=== PATIENT | male | born 1955 | race African-American/Black ===

== ENCOUNTER 2022-11-19 18:32 | Observation (INO) | payer OTHER ==
[2022-11-19 19:29] LABS: BASO % 0.5 % (0-2.0); EOS % 2.6 % (0-4.5); HEMATOCRIT 43.9 % (35.4-49); HEMOGLOBIN 15.1 GM/dL (11.7-16.9); LYMPH % 37.2 % (8-40); MCHC 34.3 g/dl (32.0-35.9); MEAN CELL VOLUME 87.3 fl (80-96); NEUT % 50.7 % (42.8-82.8); PLATELET COUNT 223 10^3/uL (134-434); RBC 5.03 M/mm3 (4.00-5.60); RDW 13.5 % (11.9-15.9); WHITE BLOOD COUNT 4.8 K/mm3 (4.0-10.0)
[2022-11-19 19:40] VITALS: BMI 21.9
[2022-11-19 19:40] LABS: ALBUMIN 3.5 g/dl (3.4-5.0); CALCIUM 9.3 mg/dL (8.5-10.1)
[2022-11-19 19:44] LABS: INR 1.06 (0.83-1.09); PROTHROMBIN TIME (PATIENT) 12.3 SEC (9.7-13.0)
[2022-11-19 19:45] LABS: BILIRUBIN,TOTAL 0.6 mg/dL (0.2-1); TOT PROT 7.7 g/dl (6.4-8.2)
[2022-11-19 19:46] LABS: ACTIVATED PTT 34.4 SECONDS (25.2-36.5)
[2022-11-19] MEDS ORDERED: ASPIRIN 81 MG CHEWABLE TABLETS PO ONE (20:54)
[2022-11-20 04:43] LABS: URINE APPEARANCE CLEAR; URINE BILIRUBIN NEGATIVE (NEGATIVE); URINE COLOR YELLOW; URINE GLUCOSE (UA) NEGATIVE (NEGATIVE); URINE KETONE NEGATIVE (NEGATIVE); URINE LEUK ESTERASE NEGATIVE (NEGATIVE); URINE NITRITE NEGATIVE (NEGATIVE); URINE PROTEIN NEGATIVE (NEGATIVE); URINE UROBILINOGEN 0.2 mg/dL (0.2-1.0)
[2022-11-20 04:54] LABS: COCAINE, UR NEGATIVE (NEGATIVE); OPIATES, URI NEGATIVE (NEGATIVE); URINE BENZODIAZEPINES NEGATIVE (NEGATIVE)
[2022-11-20 04:55] LABS: PHENCYCLIDINE,URINE NEGATIVE (NEGATIVE); URINE BARBITURATES NEGATIVE (NEGATIVE)
[2022-11-20 05:19] LABS: METHADONE, UR NEGATIVE (NEGATIVE); URINE AMPHETAMINES NEGATIVE (NEGATIVE)
[2022-11-20] MEDS ORDERED: amLODIPine BESYLATE 2.5 MG TABLET (FP) PO ONE ×2 (08:02→18:28)
[2022-11-20] MEDS ORDERED: ENOXAPARIN NA (PORCINE) 40 MG/0.4 ML DISP.SYRIN SQ ONE (09:16)
[2022-11-20] MEDS: ENOXAPARIN NA (PORCINE) 40 MG/0.4 ML DISP.SYRIN SQ SCH (09:29)
[2022-11-20] MEDS ORDERED: amLODIPine BESYLATE 5 MG TABLET (FP) ONE (16:35)
[2022-11-20] MEDS: amLODIPine BESYLATE 5 MG TABLET (FP) PO SCH (17:21)
[2022-11-20] MEDS ORDERED: LOSARTAN POTASSIUM 50 MG TABLET PO ONE (18:27)
[2022-11-20] MEDS ORDERED: LOSARTAN POTASSIUM 50 MG TABLET ONE (18:39)
[2022-11-20] MEDS ORDERED: amLODIPine BESYLATE 2.5 MG TABLET (FP) ONE (18:39)
[2022-11-20] MEDS: ATORVASTATIN CA 40 MG TABLET (FP) PO SCH ×2 (23:17→23:24)
[2022-11-21] MEDS ORDERED: LORazepam 2 MG/ML SDV VIAL IVPUSH ONE (01:01)
[2022-11-21 08:50] LABS: BASO % 0.4 % (0-2.0); EOS % 2.1 % (0-4.5); HEMATOCRIT 42.8 % (35.4-49); HEMOGLOBIN 15.1 GM/dL (11.7-16.9); LYMPH % 31.8 % (8-40); MCH 30.4 pg (25.7-33.7); MCHC 35.4 g/dl (32.0-35.9); MEAN CELL VOLUME 85.9 fl (80-96); MEAN PLT VOLUME 8.7 fl (7.5-11.1); MONO % 10.6 % (3.8-10.2); NEUT % 55.1 % (42.8-82.8); PLATELET COUNT 217 10^3/uL (134-434); RBC 4.98 M/mm3 (4.00-5.60); RDW 13.6 % (11.9-15.9); WHITE BLOOD COUNT 5.6 K/mm3 (4.0-10.0)
[2022-11-21 09:17] LABS: CALCIUM 9.2 mg/dL (8.5-10.1)
[2022-11-21 09:18] LABS: ALBUMIN 3.5 g/dl (3.4-5.0); BLOOD UREA NITROGEN 10.1 mg/dL (7-18)
[2022-11-21 09:22] LABS: BILIRUBIN,TOTAL 0.9 mg/dL (0.2-1); TOT PROT 7.6 g/dl (6.4-8.2)
[2022-11-21] MEDS: LOSARTAN POTASSIUM 50 MG TABLET PO SCH (09:35)
[2022-11-21] MEDS: ASPIRIN 81 MG CHEWABLE TABLETS PO SCH (09:35)
[2022-11-21] MEDS: ENOXAPARIN NA (PORCINE) 40 MG/0.4 ML DISP.SYRIN SQ SCH (09:35)
[2022-11-21] MEDS: DONEPEZIL HCL 5 MG TABLET (FP) PO SCH (09:35)
[2022-11-21] MEDS: amLODIPine BESYLATE 5 MG TABLET (FP) PO SCH (09:36)
[2022-11-21] MEDS: ATORVASTATIN CA 40 MG TABLET (FP) PO SCH (21:39)
[2022-11-22 07:34] LABS: HEMATOCRIT 41.7 % (35.4-49); HEMOGLOBIN 14.6 GM/dL (11.7-16.9); MCHC 34.9 g/dl (32.0-35.9); MEAN PLT VOLUME 8.8 fl (7.5-11.1); PLATELET COUNT 217 10^3/uL (134-434); RBC 4.85 M/mm3 (4.00-5.60); RDW 13.6 % (11.9-15.9); WHITE BLOOD COUNT 5.5 K/mm3 (4.0-10.0)
[2022-11-22 07:57] LABS: CALCIUM 8.9 mg/dL (8.5-10.1)
[2022-11-22 07:59] LABS: BLOOD UREA NITROGEN 19.5 mg/dL (7-18); MAGNESIUM 2.3 mg/dL (1.8-2.4)
[2022-11-22 08:01] LABS: PHOSPHOROUS 3.2 mg/dL (2.5-4.9)
[2022-11-22 08:02] LABS: CREATININE 0.9 mg/dL (0.55-1.3)
[2022-11-22] MEDS: amLODIPine BESYLATE 5 MG TABLET (FP) PO SCH (10:23)
[2022-11-22] MEDS: LOSARTAN POTASSIUM 50 MG TABLET PO SCH (10:23)
[2022-11-22] MEDS: DONEPEZIL HCL 5 MG TABLET (FP) PO SCH (10:23)
[2022-11-22] MEDS: ASPIRIN 81 MG CHEWABLE TABLETS PO SCH (10:23)
[2022-11-22] MEDS: ENOXAPARIN NA (PORCINE) 40 MG/0.4 ML DISP.SYRIN SQ SCH (10:23)
[2022-11-22] MEDS: ATORVASTATIN CA 80 MG TABLET (FP) PO SCH ×2 (22:43→23:08)
[2022-11-22] MEDS: QUEtiapine FUMARATE 25 MG TABLET PO SCH ×2 (22:43→23:08)
[2022-11-22] MEDS ORDERED: amLODIPine BESYLATE 5 MG TABLET (FP) PO ONE (23:59)
[2022-11-23 08:17] LABS: MCHC 34.2 g/dl (32.0-35.9); MEAN CELL VOLUME 87.8 fl (80-96); MEAN PLT VOLUME 8.6 fl (7.5-11.1); PLATELET COUNT 218 10^3/uL (134-434); RBC 4.67 M/mm3 (4.00-5.60); RDW 13.7 % (11.9-15.9); WHITE BLOOD COUNT 4.8 K/mm3 (4.0-10.0)
[2022-11-23 09:02] LABS: BLOOD UREA NITROGEN 13.7 mg/dL (7-18); CALCIUM 8.9 mg/dL (8.5-10.1)
[2022-11-23 09:03] LABS: MAGNESIUM 2.4 mg/dL (1.8-2.4)
[2022-11-23] MEDS: ENOXAPARIN NA (PORCINE) 40 MG/0.4 ML DISP.SYRIN SQ SCH (09:31)
[2022-11-23] MEDS: LOSARTAN POTASSIUM 50 MG TABLET PO SCH (09:32)
[2022-11-23] MEDS: amLODIPine BESYLATE 5 MG TABLET (FP) PO SCH (09:32)
[2022-11-23] MEDS: DONEPEZIL HCL 5 MG TABLET (FP) PO SCH (09:32)
[2022-11-23] MEDS: CLOPIDOGREL BISULFATE 75 MG TABLET (FP) PO SCH (09:32)
[2022-11-23] MEDS: QUEtiapine FUMARATE 25 MG TABLET PO SCH (21:42)
[2022-11-23] MEDS: ATORVASTATIN CA 80 MG TABLET (FP) PO SCH (21:42)
[2022-11-24] MEDS: LOSARTAN POTASSIUM 50 MG TABLET PO SCH (09:20)
[2022-11-24] MEDS: ENOXAPARIN NA (PORCINE) 40 MG/0.4 ML DISP.SYRIN SQ SCH (09:20)
[2022-11-24] MEDS: CLOPIDOGREL BISULFATE 75 MG TABLET (FP) PO SCH (09:20)
[2022-11-24] MEDS: amLODIPine BESYLATE 5 MG TABLET (FP) PO SCH (09:20)
[2022-11-24] MEDS: DONEPEZIL HCL 5 MG TABLET (FP) PO SCH (09:20)
[2022-11-24] MEDS: ATORVASTATIN CA 80 MG TABLET (FP) PO SCH (21:05)
[2022-11-24] MEDS: QUEtiapine FUMARATE 25 MG TABLET PO SCH (21:05)
[2022-11-25] MEDS: ENOXAPARIN NA (PORCINE) 40 MG/0.4 ML DISP.SYRIN SQ SCH (09:21)
[2022-11-25] MEDS: CLOPIDOGREL BISULFATE 75 MG TABLET (FP) PO SCH (09:21)
[2022-11-25] MEDS: amLODIPine BESYLATE 5 MG TABLET (FP) PO SCH (09:21)
[2022-11-25] MEDS: LOSARTAN POTASSIUM 50 MG TABLET PO SCH (09:21)
[2022-11-25] MEDS: DONEPEZIL HCL 5 MG TABLET (FP) PO SCH (09:21)
[2022-11-25] MEDS: QUEtiapine FUMARATE 25 MG TABLET PO SCH (21:41)
[2022-11-25] MEDS: ATORVASTATIN CA 80 MG TABLET (FP) PO SCH (21:41)
[2022-11-26] MEDS: ENOXAPARIN NA (PORCINE) 40 MG/0.4 ML DISP.SYRIN SQ SCH (09:04)
[2022-11-26] MEDS: CLOPIDOGREL BISULFATE 75 MG TABLET (FP) PO SCH (09:05)
[2022-11-26] MEDS: DONEPEZIL HCL 5 MG TABLET (FP) PO SCH (09:05)
[2022-11-26] MEDS: amLODIPine BESYLATE 5 MG TABLET (FP) PO SCH (09:06)
[2022-11-26] MEDS: LOSARTAN POTASSIUM 50 MG TABLET PO SCH (09:06)
[2022-11-26] MEDS: QUEtiapine FUMARATE 25 MG TABLET PO SCH (21:28)
[2022-11-26] MEDS: ATORVASTATIN CA 80 MG TABLET (FP) PO SCH (21:28)
[2022-11-27 07:59] VITALS: RESP 18
[2022-11-27] MEDS: CLOPIDOGREL BISULFATE 75 MG TABLET (FP) PO SCH (09:05)
[2022-11-27] MEDS: amLODIPine BESYLATE 5 MG TABLET (FP) PO SCH (09:05)
[2022-11-27] MEDS: LOSARTAN POTASSIUM 50 MG TABLET PO SCH (09:05)
[2022-11-27] MEDS: DONEPEZIL HCL 5 MG TABLET (FP) PO SCH (09:05)
[2022-11-27 13:35] VITALS: BP 138/77; PULSE 87; TEMP 98.3
== END 2022-11-27 16:20 ==
LOC: JER 18:32 → JERBED 21:59 → J4S 11-20 20:57
PROVIDERS: ADMIT Internal Medicine; ATTEND Internal Medicine
PROC: 3E023GC Introduction of Other Therapeutic Substance into Muscle, Percutaneous Approach (ICD-10-PCS; principal; 2022-11-19)
PROC: 3E033NZ Introduction of Analgesics, Hypnotics, Sedatives into Peripheral Vein, Percutaneous Approach (ICD-10-PCS; 2022-11-19)
DX: I63.9 Cerebral infarction, unspecified (principal); I69.920 Aphasia following unspecified cerebrovascular disease; I10 Essential (primary) hypertension; R26.2 Difficulty in walking, not elsewhere classified; G30.9 Alzheimer's disease, unspecified; F02.80 Dementia in other diseases classified elsewhere, unspecified severity, without behavioral disturbance, psychotic disturbance, mood disturbance, and anxiety
CPT/HCPCS: 0241U-QW; 36415; 70450-TC; 70551-TC; 71045-TC-FY; 73070-TC-LT-FY; 73521-TC-FY; 80048; 80053; 80061; 80307; 81003; 82962; 83036; 83735; 84100; 84484; 85025; 85027; 85610; 85730; 86850; 86900; 86901; 87086; 93005; 93010; 93306-TC; 93880-TC; 96365; 96372; 96375; 96376; 97116-GP; 97161-GP; 99285-25; C9803-CS; G0378; U0003; U0005

== ENCOUNTER 2023-09-02 17:34 | Inpatient (IN) | payer OTHER ==
[2023-09-02 18:49] LABS: BASO % 0.4 % (0-2.0); HEMATOCRIT 42.7 % (35.4-49); HEMOGLOBIN 14.5 GM/dL (11.7-16.9); LYMPH % 24.6 % (8-40); MCH 29.9 pg (25.7-33.7); MCHC 33.9 g/dl (32.0-35.9); MEAN CELL VOLUME 88.3 fl (80-96); MONO % 11.5 % (3.8-10.2); NEUT % 61.5 % (42.8-82.8); PLATELET COUNT 258 10^3/uL (134-434); RBC 4.84 M/mm3 (4.00-5.60); RDW 13.6 % (11.9-15.9); WHITE BLOOD COUNT 5.8 K/mm3 (4.0-10.0)
[2023-09-02 18:54] LABS: EPI CELLS 31 /uL (0-25.1); HYALINE CASTS 1 /uL (0-3.1); PH,URINE 6.5 (5.0-8.0); URINE APPEARANCE CLEAR; URINE BACTERIA 29 /uL (0-1359); URINE BILIRUBIN NEGATIVE (NEGATIVE); URINE COLOR YELLOW; URINE GLUCOSE (UA) NEGATIVE (NEGATIVE); URINE KETONE 1+ (NEGATIVE); URINE LEUK ESTERASE NEGATIVE (NEGATIVE); URINE NITRITE NEGATIVE (NEGATIVE); URINE PROTEIN TRACE (NEGATIVE); URINE RBC 59 /uL (0-23.9); URINE WBC 16 /uL (0-25.8)
[2023-09-02 18:57] LABS: INR 1.09 (0.83-1.09); PROTHROMBIN TIME (PATIENT) 12.6 SEC (9.7-13.0)
[2023-09-02 19:15] LABS: POTASSIUM 4.3 mmol/L (3.5-5.1)
[2023-09-02 19:19] LABS: CALCIUM 9.5 mg/dL (8.5-10.1)
[2023-09-02 19:20] LABS: ALBUMIN 3.4 g/dl (3.4-5.0); MAGNESIUM 2.4 mg/dL (1.8-2.4)
[2023-09-02 19:23] LABS: PHOSPHOROUS 3.3 mg/dL (2.5-4.9)
[2023-09-02 19:24] LABS: BILIRUBIN,TOTAL 1.2 mg/dL (0.2-1); BLOOD UREA NITROGEN 15.2 mg/dL (7-18); TOT PROT 7.4 g/dl (6.4-8.2)
[2023-09-03] MEDS: NICOTINE 7 MG/24 HOURS TOPICAL PATCH TD SCH (09:39)
[2023-09-03] MEDS: CLOPIDOGREL BISULFATE 75 MG TABLET (FP) PO SCH (09:39)
[2023-09-03] MEDS: LOSARTAN POTASSIUM 50 MG TABLET PO SCH (09:39)
[2023-09-03] MEDS ORDERED: amLODIPine BESYLATE 5 MG TABLET (FP) PO SCH (10:00)
[2023-09-03] MEDS ORDERED: amLODIPine BESYLATE 10 MG TABLET (FP) PO SCH (15:30)
[2023-09-03] MEDS ORDERED: amLODIPine BESYLATE 10 MG TABLET (FP) ONE (15:35)
[2023-09-03] MEDS ORDERED: DONEPEZIL HCL 5 MG TABLET (FP) PO SCH (22:00)
[2023-09-03] MEDS ORDERED: ATORVASTATIN CA 80 MG TABLET (FP) ONE (22:01)
[2023-09-03] MEDS: ATORVASTATIN CA 80 MG TABLET (FP) PO SCH (22:03)
[2023-09-04 06:58] LABS: BASO % 0.3 % (0-2.0); HEMATOCRIT 41.9 % (35.4-49); LYMPH % 30.1 % (8-40); MCH 29.9 pg (25.7-33.7); MCHC 33.4 g/dl (32.0-35.9); MEAN CELL VOLUME 89.6 fl (80-96); MEAN PLT VOLUME 7.7 fl (7.5-11.1); MONO % 11.4 % (3.8-10.2); NEUT % 55.2 % (42.8-82.8); PLATELET COUNT 259 10^3/uL (134-434); RBC 4.68 M/mm3 (4.00-5.60); RDW 13.6 % (11.9-15.9); WHITE BLOOD COUNT 6.5 K/mm3 (4.0-10.0)
[2023-09-04 07:23] LABS: POTASSIUM 3.8 mmol/L (3.5-5.1)
[2023-09-04 07:31] LABS: CREATININE 0.7 mg/dL (0.55-1.3)
[2023-09-04 07:32] LABS: ALBUMIN 3.4 g/dl (3.4-5.0); BILIRUBIN,TOTAL 1.2 mg/dL (0.2-1); BLOOD UREA NITROGEN 11.3 mg/dL (7-18); TOT PROT 7.1 g/dl (6.4-8.2)
[2023-09-04 07:50] LABS: CALCIUM 9.4 mg/dL (8.5-10.1)
[2023-09-04] MEDS ORDERED: ASPIRIN 81 MG CHEWABLE TABLETS PO SCH (10:00)
[2023-09-04] MEDS ORDERED: NICOTINE 7 MG/24 HOURS TOPICAL PATCH TD ONE (10:28)
[2023-09-04] MEDS ORDERED: LOSARTAN POTASSIUM 50 MG TABLET ONE (10:28)
[2023-09-04] MEDS ORDERED: CLOPIDOGREL BISULFATE 75 MG TABLET (FP) ONE (10:28)
[2023-09-04] MEDS ORDERED: ASPIRIN 81 MG CHEWABLE TABLETS ONE (10:28)
[2023-09-04] MEDS: LOSARTAN POTASSIUM 50 MG TABLET PO SCH (10:40)
[2023-09-04] MEDS: NICOTINE 7 MG/24 HOURS TOPICAL PATCH TD SCH (10:40)
[2023-09-04] MEDS: CLOPIDOGREL BISULFATE 75 MG TABLET (FP) PO SCH (10:41)
[2023-09-04] MEDS ORDERED: ATORVASTATIN CA 80 MG TABLET (FP) ONE (22:25)
[2023-09-04] MEDS: ATORVASTATIN CA 80 MG TABLET (FP) PO SCH (22:51)
[2023-09-05 00:35] VITALS: BMI 25.6
[2023-09-05 09:28] LABS: BASO % 0.2 % (0-2.0); HEMATOCRIT 40.1 % (35.4-49); HEMOGLOBIN 13.3 GM/dL (11.7-16.9); LYMPH % 32.7 % (8-40); MCH 29.7 pg (25.7-33.7); MCHC 33.2 g/dl (32.0-35.9); MEAN CELL VOLUME 89.5 fl (80-96); MEAN PLT VOLUME 7.3 fl (7.5-11.1); NEUT % 52.1 % (42.8-82.8); PLATELET COUNT 261 10^3/uL (134-434); RBC 4.48 M/mm3 (4.00-5.60); RDW 13.3 % (11.9-15.9); WHITE BLOOD COUNT 5.5 K/mm3 (4.0-10.0)
[2023-09-05 09:46] LABS: POTASSIUM 3.9 mmol/L (3.5-5.1)
[2023-09-05] MEDS: ENOXAPARIN NA (PORCINE) 40 MG/0.4 ML DISP.SYRIN SQ SCH ×2 (09:46→09:59)
[2023-09-05] MEDS: ASPIRIN 81 MG CHEWABLE TABLETS PO SCH (09:47)
[2023-09-05] MEDS: NICOTINE 7 MG/24 HOURS TOPICAL PATCH TD SCH ×2 (09:47→10:00)
[2023-09-05] MEDS: CLOPIDOGREL BISULFATE 75 MG TABLET (FP) PO SCH (09:47)
[2023-09-05] MEDS: LOSARTAN POTASSIUM 50 MG TABLET PO SCH (09:47)
[2023-09-05 10:00] LABS: ALBUMIN 3.1 g/dl (3.4-5.0); CALCIUM 9.2 mg/dL (8.5-10.1)
[2023-09-05 10:04] LABS: BILIRUBIN,TOTAL 0.9 mg/dL (0.2-1); TOT PROT 6.7 g/dl (6.4-8.2)
[2023-09-05 10:06] LABS: CREATININE 0.7 mg/dL (0.55-1.3)
[2023-09-05 14:25] VITALS: RESP 18
[2023-09-05] MEDS: ATORVASTATIN CA 80 MG TABLET (FP) PO SCH (21:36)
[2023-09-06] MEDS: LOSARTAN POTASSIUM 50 MG TABLET PO SCH (09:24)
[2023-09-06] MEDS: CLOPIDOGREL BISULFATE 75 MG TABLET (FP) PO SCH (09:24)
[2023-09-06] MEDS: NICOTINE 7 MG/24 HOURS TOPICAL PATCH TD SCH (09:24)
[2023-09-06] MEDS: ASPIRIN 81 MG CHEWABLE TABLETS PO SCH (09:24)
[2023-09-06] MEDS: ENOXAPARIN NA (PORCINE) 40 MG/0.4 ML DISP.SYRIN SQ SCH (09:25)
[2023-09-06 11:38] LABS: HEMATOCRIT 38.7 % (35.4-49); HEMOGLOBIN 13.3 GM/dL (11.7-16.9); MCH 30.5 pg (25.7-33.7); MCHC 34.4 g/dl (32.0-35.9); MEAN CELL VOLUME 88.4 fl (80-96); MEAN PLT VOLUME 7.5 fl (7.5-11.1); PLATELET COUNT 262 10^3/uL (134-434); RBC 4.38 M/mm3 (4.00-5.60); RDW 13.5 % (11.9-15.9); WHITE BLOOD COUNT 5.7 K/mm3 (4.0-10.0)
[2023-09-06 12:18] LABS: CALCIUM 9.4 mg/dL (8.5-10.1)
[2023-09-06 12:22] LABS: CREATININE 0.8 mg/dL (0.55-1.3)
[2023-09-06] MEDS: ATORVASTATIN CA 80 MG TABLET (FP) PO SCH (23:26)
[2023-09-07] MEDS: ENOXAPARIN NA (PORCINE) 40 MG/0.4 ML DISP.SYRIN SQ SCH (09:44)
[2023-09-07] MEDS: CLOPIDOGREL BISULFATE 75 MG TABLET (FP) PO SCH (09:45)
[2023-09-07] MEDS: LOSARTAN POTASSIUM 50 MG TABLET PO SCH (09:45)
[2023-09-07] MEDS: ASPIRIN 81 MG CHEWABLE TABLETS PO SCH (09:45)
[2023-09-07] MEDS: NICOTINE 7 MG/24 HOURS TOPICAL PATCH TD SCH (09:45)
[2023-09-07] MEDS: POLYETHYLENE GLYCOL (HEALTHYLAX) 3350 17 GM PACKET PO SCH (11:56)
[2023-09-07] MEDS: ATORVASTATIN CA 80 MG TABLET (FP) PO SCH (22:08)
[2023-09-08 07:06] VITALS: BP 128/85; PULSE 70; TEMP 96.4
[2023-09-08] MEDS: CLOPIDOGREL BISULFATE 75 MG TABLET (FP) PO SCH (09:40)
[2023-09-08] MEDS: ENOXAPARIN NA (PORCINE) 40 MG/0.4 ML DISP.SYRIN SQ SCH ×2 (09:40→10:50)
[2023-09-08] MEDS: ASPIRIN 81 MG CHEWABLE TABLETS PO SCH (09:40)
[2023-09-08] MEDS: LOSARTAN POTASSIUM 50 MG TABLET PO SCH (09:41)
[2023-09-08] MEDS: NICOTINE 7 MG/24 HOURS TOPICAL PATCH TD SCH (09:41)
[2023-09-08] MEDS: POLYETHYLENE GLYCOL (HEALTHYLAX) 3350 17 GM PACKET PO SCH (09:41)
== END 2023-09-08 15:59 | DRG 65 ==
LOC: JER 17:34 → JERBED 20:36 → OBSVTOIN 09-03 15:23 → J5S 09-05 00:07
PROVIDERS: ADMIT Internal Medicine; ATTEND Internal Medicine
DX: I63.89 Other cerebral infarction (principal); G81.94 Hemiplegia, unspecified affecting left nondominant side; I10 Essential (primary) hypertension; G30.9 Alzheimer's disease, unspecified; E78.5 Hyperlipidemia, unspecified; R62.7 Adult failure to thrive; Z68.25 Body mass index [BMI] 25.0-25.9, adult; F17.210 Nicotine dependence, cigarettes, uncomplicated; W19.XXXA Unspecified fall, initial encounter; Y93.89 Activity, other specified; Y92.009 Unspecified place in unspecified non-institutional (private) residence as the place of occurrence of the external cause; Y99.8 Other external cause status
CPT/HCPCS: 0241U-QW; 36415; 70450-TC; 70551-TC; 71045-TC-FY; 72170-TC-FY; 80048; 80053; 80061; 81003; 82607; 82746; 83735; 83880; 84100; 84443; 84484; 85025; 85027; 85610; 86850; 86900; 86901; 87086; 93005; 93010; 93306-TC; 93880-TC; 97116-GP; 97162-GP; 99285-25; G0378